=== PATIENT | male | born 1985 | race Caucasian/White ===

== ENCOUNTER 2021-01-10 19:01 | Emergency (ER) | payer SELFPAY ==
[2021-01-10 19:05] VITALS: BP 153/94; PULSE 115; RESP 18; TEMP 37; O2SAT 96; BMI 33.0
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
[2021-01-10] MEDS: ondansetron 2 mg/ML SDV 2 mL 4 MG IVP (19:14)
[2021-01-10 19:17] VITALS: RESP 16
[2021-01-10] MEDS: HYDROmorphone 1 mg/mL INJ 1 mL IVP (19:17)
[2021-01-10 19:22] LABS: Basophils # 0.1 10^3/uL (0.0-0.1); Basophils % 0.5 %; Eosinophils # 0.1 10^3/uL (0.0-0.8); Eosinophils % 0.3 %; Hematocrit 51.6 % (42.0-52.0); Hemoglobin 17.5 g/dL (11.7-16.6); Lymphocytes # 4.8 10^3/uL (0.8-4.8); Lymphocytes % 18.6 %; Mean Corpuscular HGB Conc 33.9 g/dL (30.0-36.0); Mean Corpuscular Hemoglobin 31.8 pg (28.0-34.0); Mean Corpuscular Volume 93.6 fL (80-94); Mean Platelet Volume 9.5 fL (7.4-10.4); Monocytes # 3.9 10^3/uL (0.2-0.9); Neutrophils # 16.97 10^3/uL (1.8-7.7); Neutrophils % 65.1 %; Nucleated Red Blood Cells % 0 %; Platelet Count 370 10^3/cmm (130-400); Red Blood Count 5.51 10^6/uL (4.1-5.3); Red Cell Distribution Width 13.7 % (12.1-15.1)
[2021-01-10] MEDS: iohexol 300 mg/mL 100 mL Btl IV (19:35)
[2021-01-10 19:39] LABS: Blood Urea Nitrogen 10 mg/dL (6-20); Carbon Dioxide 25 mmol/L (22-29); Chloride 97 mmol/L (98-107); Glucose 111 mg/dL (65-115); Osmolality Calculated 280 mOsm/kg (285-295); Sodium 135 mmol/L (136-145)
[2021-01-10 19:40] LABS: Anion Gap 16.1 (5-19); Potassium 3.1 mmol/L (3.5-5.1)
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
[2021-01-10 20:15] VITALS: BP 143/81; PULSE 104; RESP 18; O2SAT 96
[2021-01-10 21:40] VITALS: BP 104/75; PULSE 97; RESP 16; O2SAT 98
== END 2021-01-10 21:43 | disposition home or self-care (01) ==
PROVIDERS: Emergency Provider Emergency Medicine
DX: S81.832A Puncture wound without foreign body, left lower leg, initial encounter (principal); W34.00XA Accidental discharge from unspecified firearms or gun, initial encounter
CPT/HCPCS: 73701; 80048; 85025; 96374; 96375; 99283; J1170; J2405; Q9967